=== PATIENT | female | born 1975 | race Two or more races ===

== ENCOUNTER → 2016-10-12 | Outpatient (CLI) | payer MEDICAID ==
--- NOTE | 2016-10-12 16:49 | DX ---
PA and Lateral Chest X-ray 1614 hours History: Nonspecific reaction to TB skin test without active TB (R 76.11). Findings: Heart size and pulmonary vasculature are normal. The lungs are clear without infiltrates or effusions. The lung apices are clear. There is no pneumothorax. The osseous structures are intact. Impression: Normal chest x-ray.
== END ==
LOC: BMCIMAGING 16:16
PROVIDERS: ATTEND Internal Medicine
DX: R76.11 Nonspecific reaction to tuberculin skin test without active tuberculosis (principal)